=== PATIENT | male | born 1955 | race Caucasian/White ===

== ENCOUNTER 2021-06-26 12:13 | Day surgery (SDC) | payer BC ==
[~2021-06-26] VITALS: Ht 175.3 cm; Wt 67.2 kg
[2021-06-26 12:45] VITALS: BP 143/90; PULSE 66; TEMP 98.3
[2021-06-26] MEDS ORDERED: SINGULAIR 110 MG/TAB PO (13:45)
[2021-06-26] MEDS ORDERED: XYZAL5 MG PO (13:45)
[2021-06-26] MEDS ORDERED: LIPITOR 10MG10 MG PO (13:45)
[2021-06-26] MEDS ORDERED: LIALDA 1.2 GM1.2 GM PO (13:46)
[2021-06-26] MEDS ORDERED: DYMISTA1 SPR NS (13:47)
[2021-06-26] MEDS ORDERED: RT ADVAIR 528 DISKUS IH (13:50)
[2021-06-26 14:05] VITALS: BP 110/73; PULSE 63; TEMP 97
--- NOTE | 2021-06-26 14:05 | NUR ---
Pt arrived from procedure and was settled by Rossy TIMMONS. Verbal room report obtained. Pt provided warm muffin and hot coffee per request. Pt oriented to room and call bassett, within reach. is present.
[2021-06-26 14:20] VITALS: BP 117/77; PULSE 74
--- NOTE | 2021-06-26 14:20 | NUR ---
VSS. Pt denies nausea. No vomiting. Call bassett remains within reach. Pt expressed desire to be discharged.
[2021-06-26 14:35] VITALS: BP 122/83; PULSE 68
--- NOTE | 2021-06-26 14:35 | NUR ---
VSS. IV discontinued. Catheter tip intact. Pressure dressing applied. No redness or swelling noted. DC instructions and educational material reviewed with the pt and , who verbalized understanding and signed the realted paperwork. Pt denied needing assistance changing into personal clothes. Call bassett remains within reach.
--- NOTE | 2021-06-26 14:46 | NUR ---
Pt dismissed from endo via wheelchair by Milagros TIMMONS to pt entrence. Pt has DC packet and personal belongings and was transferred into the care of his , who is present to drive.
== END 2021-06-26 14:55 | disposition home or self-care (01) ==
LOC: SDCO 12:13
DX: K51.919 Ulcerative colitis, unspecified with unspecified complications (principal); K62.5 Hemorrhage of anus and rectum; K57.30 Diverticulosis of large intestine without perforation or abscess without bleeding; Z79.899 Other long term (current) drug therapy; Z87.891 Personal history of nicotine dependence
CPT/HCPCS: J2704; J7030